=== PATIENT | male | born 1970 | race Caucasian/White ===

== ENCOUNTER 2020-10-08 06:01 | Outpatient (REF) | payer BC, OTHER, SELFPAY ==
[2020-10-08 11:52] LABS: Alanine Aminotransferase 45 U/L (0-40); Albumin Level 4.6 g/dL (3.5-5.0); Alkaline Phosphatase 115 U/L (39-117); Anion Gap 13 (12-20); Aspartate Amino Transferase 26 U/L (5-37); Bilirubin Total 0.5 mg/dL (0.0-1.0); Blood Urea Nitrogen 21 mg/dL (9-16); Carbon Dioxide 28 mmol/L (22-29); Chloride 103 mmol/L (96-108); Cholesterol 235 mg/dL; Estimated Glomerular Filt Rate > 60; Glucose Fasting 92 mg/dL (60-99); HDL Cholesterol 40 mg/dL; LDL Cholesterol Calculated 122 mg/dl; Potassium 4.2 mmol/l (3.3-5.1); Sodium 140 mmol/L (135-145); Total Protein 7.5 g/dL (6.5-8.0); Triglycerides 366 mg/dL
[2020-10-08 12:00] LABS: TSH reflex Free T4 3.72 mIU/mL (0.32-4.0)
== END 2020-10-08 06:02 | disposition home or self-care (01) ==
LOC: HO.HMGCLDS 06:01
PROVIDERS: PCP Nurse Practitioner Family; Visit Provider Nurse Practitioner Family
DX: Z00.00 Encounter for general adult medical examination without abnormal findings (principal)
CPT/HCPCS: 36415; 80053; 80061; 84443

== ENCOUNTER 2020-10-23 07:44 | Outpatient (REF) | payer BC, OTHER, SELFPAY ==
--- NOTE | 2020-10-23 07:46 | US_ITS ---
EXAMINATION: US ABDOMEN COMPLETE CLINICAL INFORMATION: Abnormal lab tests. COMPARISON: None TECHNIQUE: Real-time imaging of the abdominal viscera. FINDINGS: PANCREAS: Normal. ABDOMINAL AORTA: The proximal, mid, and distal segments are normal in caliber. INFERIOR VENA CAVA: Visualized portions are normal. LIVER: Liver echotexture is increased probably representing fatty infiltration. The liver is normal in size and contour. No focal hepatic lesion. There is no intrahepatic biliary duct dilatation seen. GALLBLADDER: Normal. The gallbladder is physiologically distended without evidence of stones, sludge, polyps, wall thickening or pericholecystic fluid. COMMON BILE DUCT: Normal in caliber measuring 0.3 cm in diameter. RIGHT KIDNEY: Normal. No hydronephrosis. No renal calculi or focal parenchymal lesions. The kidney measures 12.3 cm in maximum dimension. LEFT KIDNEY: Normal. No hydronephrosis. No renal calculi or focal parenchymal lesions. The kidney measures 12.5 cm in maximum dimension. SPLEEN: Normal. The spleen measures 12.7 cm in maximum dimension. FREE FLUID: None. US/US abdomen complete IMPRESSION: Echogenic liver probably representing fatty infiltration. Otherwise unremarkable exam.
== END 2020-10-23 07:45 | disposition home or self-care (01) ==
LOC: HO.US 07:44
PROVIDERS: Visit Provider Nurse Practitioner Family
DX: R74.8 Abnormal levels of other serum enzymes (principal)
CPT/HCPCS: 76700

== ENCOUNTER 2020-12-24 08:42 | Outpatient (REF) | payer BC, OTHER, SELFPAY ==
[2020-12-24 11:47] LABS: Cholesterol 151 mg/dL; HDL Cholesterol 31 mg/dL; LDL Cholesterol Calculated 72 mg/dl; Triglycerides 243 mg/dL
== END 2020-12-24 08:43 | disposition home or self-care (01) ==
LOC: HO.HMGCLDS 08:42
PROVIDERS: PCP Nurse Practitioner Family; Visit Provider Nurse Practitioner Family
DX: E78.5 Hyperlipidemia, unspecified (principal)
CPT/HCPCS: 36415; 80061

== ENCOUNTER 2023-05-12 10:01 | Outpatient (AMB) | payer BC, OTHER, SELFPAY ==
--- NOTE | 2023-05-12 11:01 | AM.OFFWIN_ITS ---
Intake Vital Signs 05/12/23 11:03 Weight 221 lb BP 112/78 Blood Pressure Location Rt brachial Position Sitting Pulse 94 Pulse Source Pulse Oximeter Temp 98.2 F Temp Source Temporal Artery Scan Pulse Oximetry (%) 95 Oxygen Delivery Method Room Air Intake Visit Reasons: EP, Bump in scrotum Intake Note: Patient here for bump in scrotum, he states its been there for some time. he also mentioned that he has noticed 2 other bumps. Patient Tobacco Use Status: Never used Tobacco Allergies No Known Allergies [No Known Allergies*] Allergy (Verified 05/12/23 11:24) Medication List - Last Reconciled 05/12/23 by Reagan Soliman MD atorvastatin 20 mg PO BEDTIME 90 days imiquimod 3.75% 2 packets topical BEDTIME 8 weeks Do you need a note to return to daycare/school/sports/work: No HPI EP, Bump in scrotum HPI Details 52-year-old male presents to the office for a sick visit. Over the past few months patient has noticed a few lesions on his shaft of penis and scrotum. There non irritating and not painful. Patient is and in a single relationship. [facility] Surgical History History of umbilical hernia repair Social History Alcohol intake: current Patient Tobacco Use Status: Never used Tobacco Physical Exam Vital Signs: Last Vital Signs Temp 98.2 F 05/12/23 11:03 Pulse 94 05/12/23 11:03 BP 112/78 05/12/23 11:03 Pulse Ox 95 05/12/23 11:03 Oxygen Delivery Method Room Air 05/12/23 11:03 Other: Flat papules over the penis and scrotum. No erythema or tenderness. Assessment & Plan Assessment & Plan (1) Genital warts: Code(s): A63.0 - Anogenital (venereal) warts Plan: Patient was advised to use the cream once a day. To apply it at bedtime and to wash it off in the morning. He needs to use the cream every day for 8 weeks. Medications: New imiquimod 3.75% 2 packets topical BEDTIME 8 weeks 56 packets 0RF Coding Level of Care Code Est Pt Level 3 (75280) Diagnoses Genital warts A63.0
[2023-05-12 11:03] VITALS: BP 112/78; PULSE 94; TEMP 36.8; O2SAT 95
== END 2023-05-12 11:38 | disposition home or self-care (01) ==
PROVIDERS: PCP Nurse Practitioner Family; Visit Provider Internal Medicine
DX: A63.0 Anogenital (venereal) warts (principal)
CPT/HCPCS: 99213

== ENCOUNTER 2023-06-13 10:21 | Outpatient (AMB) | payer BC, OTHER, SELFPAY ==
--- NOTE | 2023-06-13 10:29 | AM.OFFWIN_ITS ---
Intake Vital Signs 06/13/23 10:32 Weight 102.058 kg BP 120/80 Blood Pressure Location Rt brachial Position Sitting Pulse 96 Pulse Source Pulse Oximeter Temp 98.6 F Temp Source Oral Pulse Oximetry (%) 95 Oxygen Delivery Method Room Air Intake Visit Reasons: EST/spots on groin area Intake Note: PT was here one month ago due to recurrence of STD. Now he's noticed spots on scrotum and penis. Patient Tobacco Use Status: Never used Tobacco Allergies No Known Allergies [No Known Allergies*] Allergy (Verified 06/13/23 10:33) HPI HPI Comments History of Present Illness Details 1040 52-year-old male presents with lesions t hat are painless on his penis as well as worsening genital warts despite using imiquimod, patient has been using it at bedtime for 8 weeks, with little to no improvement. He is seeking a urology consult. 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 He also noted red ulcers/lesions on the shaft of his penis this has been present for the past few weeks. Patient has not been tested for gonorrhea, chlamydia, syphilis, HIV or hepatitis-C. He is in a relationship with his , his only partner. Denies discharge, difficulties with urination, fevers, chills. Physical exam small condyloma noted to the penis and scrotum, and there are pa inless ulcers to the shaft of the penis. Concerns for possible sexually transmitted infections such as syphilis, herpes, HPV. Unlikely chlamydia based presentation although still some low suspicion. Will test for syphilis, gonorrhea chlamydia, will have his PCP test for HIV or hepatitis-C. I feel as though this patient would benefit from a urological consultation/follow-up. Plan at this time will obtain a urine, basic labs, syphilis test. Advised him to continue using imiquimod. Educated patient on diagnosis and treatment plan, answered all question, patient verbalizes understanding. At this time patient will be discharged home, advised to return with new or worsening symptoms. Educated on worrisome signs and symptoms and when to return. At this time I feel comfortable discharge home. [facility] Surgical History History of umbilical hernia repair Social History Alcohol intake: current Patient Tobacco Use Status: Never used Tobacco Review of Systems Const Details: Constitutional : No Weight loss, No Fever, No Chills, No Fatigue, No Malaise ENT/Mouth : No sore throat, No Rhinorrhea Eyes: No Eye Pain, No Swelling, No Redness Cardiovascular : No Chest Pain, No SOB, No Dyspnea on Exertion, No Orthopnea, No Edema, No Palpitations Respiratory : No Cough, No Sputum, No Wheezing Gastrointestinal : No Nausea, No Vomiting, No Diarrhea, No Constipation, No abdominal Pain, No Hematochezia, No Melena Genitourinary : No Dysuria, No Urinary Frequency, No Hematuria, + lesions to penis Musculoskeletal : No joint pain, No Myalgias, No Joint Swelling Skin : No Skin Lesions, No rash Neuro : No Weakness, No Numbness, No Dizziness, No Headache Psych : No Anxiety/Panic, No Depression All other systems reviewed and are negative All systems reviewed & are unremarkable except as noted in HPI and below Physical Exam Vital Signs: Last Vital Signs Pulse 96 06/13/23 10:32 Pulse Ox 95 06/13/23 10:32 Oxygen Delivery Method Room Air 06/13/23 10:32 vss Appearance: Alert.? Oriented X3.? No acute distress.? Head: Normocephalic, atraumatic, no step-offs or deformities Eyes: Pupils equal, round and reactive to light.? CVS: Normal heart rate and rhythm.? Pulses normal.? Respiratory: No respiratory distress.? Breath sounds normal.? Abdomen: Soft and nontender.? Skin: Skin warm and dry.? Normal skin color.? Normal skin turgor.? Extremities: No lower extremity edema.? No calf ttp. 5/5 strength to bilateral upper and lower extremities Neuro: Oriented X 3.? No motor deficit.? No sensory deficit. 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 Assessment & Plan Assessment & Plan (1) Genital warts: Code(s): A63.0 - Anogenital (venereal) warts (2) Lesion of penis: Code(s): N48.9 - Disorder of penis, unspecified Plan Take your medications as prescribed. If you were prescribed antibiotics today, it is important that you take your medication to their entirety, do not skip any doses, do not finish them early. Follow-up with your primary care provider this week. Return to the emergency department with new or worsening symptoms. Such as fevers, chills, chest pain, shortness of breath, nausea, vomiting, dizziness, headache, vision changes, lethargy In case of emergency call 911 Orders: Orders Complete Blood Count Auto Diff Today A63.0 - Anogenital (venereal) warts Comprehensive Met. Panel Today A63.0 - Anogenital (venereal) warts Syphilis Screen Today A63.0 - Anogenital (venereal) warts CT NG by PCR Today A63.0 - Anogenital (venereal) warts UA CC w/rflx Micro + Cult Today A63.0 - Anogenital (venereal) warts Coding Level of Care Code Est Pt Level 3 (15554) Diagnoses Genital warts A63.0 Lesion of penis N48.9
[2023-06-13 10:32] VITALS: BP 120/80; PULSE 96; TEMP 37; O2SAT 95
== END 2023-06-13 11:00 | disposition home or self-care (01) ==
PROVIDERS: PCP Nurse Practitioner Family; Visit Provider Physician Assistant
DX: A63.0 Anogenital (venereal) warts (principal); N48.9 Disorder of penis, unspecified
CPT/HCPCS: 99213

== ENCOUNTER 2023-06-13 11:18 | Outpatient (REF) | payer BC, OTHER, SELFPAY ==
[2023-06-13 13:24] LABS: MANUAL DIFF FLAG NO
[2023-06-13 13:34] LABS: Basophils Percent Auto 0.3 % (0-2); Eosinophils Absolute Auto 0.1 X10*3/uL (0.0-0.4); Eosinophils Percent Auto 1.9 % (0-4); Hematocrit 47.7 % (42.0-52.0); Hemoglobin 16.8 g/dl (14.0-18.0); Imm Gran Abs Auto 0.02 X10*3/uL (0.00-0.03); Imm Gran Pct Auto 0.3 % (0.0-0.4); Lymphocytes Absolute Auto 0.8 X10*3/uL (1.2-4.9); Lymphocytes Percent Auto 13.9 % (20-40); Mean Corpuscular HGB Conc 35.2 g/dl (31.0-36.0); Mean Corpuscular Hemoglobin 31.4 pg (27.0-33.0); Mean Corpuscular Volume 89.2 fL (80.0-98.0); Mean Platelet Volume 9.7 fL (9.4-12.4); Monocytes Absolute Auto 0.4 X10*3/uL (0.1-1.2); Monocytes Percent Auto 6.3 % (2-11); Neutrophils Absolute Auto 4.4 x10*3/uL (2.0-8.3); Neutrophils Percent Auto 77.3 % (45-73); Platelet Count 283 X10*3/uL (160-400); Red Blood Count 5.35 X10*6/uL (4.60-5.80); Red Cell Distribution Width 11.7 % (11.0-16.0); White Blood Count 5.7 X10*3/uL (4.8-10.8)
[2023-06-13 13:42] LABS: Appearance Urine Clear; Color Urine Yellow; Glucose Urine UA Negative (Negative); Leukocyte Esterase Urine Negative (Negative); Nitrite Urine Negative (Negative); PH 5.5 (5.0-9.0); Specific Gravity - Urine 1.025 (1.005-1.025); Urine Blood Negative (Negative); Urine Ketones Negative (Negative); Urine Protein Negative (Neg-Trace)
[2023-06-13 13:43] LABS: Alanine Aminotransferase 44 U/L (0-40); Albumin Level 4.3 g/dL (3.5-5.0); Alkaline Phosphatase 106 U/L (39-117); Anion Gap 11 (12-20); Aspartate Amino Transferase 27 U/L (5-37); Bilirubin Total 0.7 mg/dL (0.0-1.0); Blood Urea Nitrogen 13 mg/dL (9-16); Calcium 9.3 mg/dL (8.4-10.2); Carbon Dioxide 27 mmol/L (22-29); Chloride 106 mmol/L (96-108); Estimated Glomerular Filt Rate > 60; Glucose Random 101 mg/dL (60-115); Potassium 3.8 mmol/L (3.3-5.1); Sodium 140 mmol/L (135-145); Total Protein 7.4 g/dL (6.5-8.0)
[2023-06-13 14:04] LABS: Syphilis Screen Nonreactive (Nonreactive)
[2023-06-13 15:07] LABS: CT PCR NOT DETECTED (Not Detect.); NG PCR NOT DETECTED (Not Detect.)
== END 2023-06-13 11:19 | disposition home or self-care (01) ==
LOC: HO.HMGCLDS 11:18
PROVIDERS: PCP Nurse Practitioner Family; Visit Provider Physician Assistant
DX: A63.0 Anogenital (venereal) warts (principal)
CPT/HCPCS: 0353U; 36415; 80053; 81003; 85025; 86780

== ENCOUNTER 2023-06-27 09:27 | Outpatient (AMB) | payer BC, OTHER, SELFPAY ==
[2023-06-27 11:20] VITALS: BP 122/78; PULSE 88; TEMP 36.3; O2SAT 98; BMI 32.6
--- NOTE | 2023-06-27 11:20 | MHC.OFFWIV ---
Intake Vital Signs 06/27/23 11:20 Height 5 ft 9 in Weight 221 lb BMI 32.6 BP 122/78 Blood Pressure Location Rt brachial Position Sitting Pulse 88 Pulse Source Pulse Oximeter Temp 97.3 F Temp Source Temporal Artery Scan Pulse Oximetry (%) 98 Intake Visit Reasons: EST/groin issues Intake Note: pt is here for c/o genital warts, patient states hes been here awhile ago but new ones keep popping up and he has concerns Patient Tobacco Use Status: Never used Tobacco Allergies No Known Allergies [No Known Allergies*] Allergy (Verified 06/13/23 10:33) Do you need a note to return to daycare/school/sports/work: Yes HPI EST/groin issues HPI Details Patient is a 52-year-old male comes the walk-in clinic complaining of a new penile lesion, that does not hurt at baseline but is sore with touch, and skin is peeling away around it. He does have a longstanding history of HPV penile warts and recently had new wart like lesion and states that because it had looked different than his prior warts he had a STD workup that was negative, however he was not tested for HSV at the time. He denies fever or chills, headaches, myalgias or malaise, abdominal or back pain, nausea vomiting or diarrhea, or other significant associated viral/infectious symptoms. He denies high risk sexual intercourse since his last STD workup. [facility] Surgical History History of umbilical hernia repair Social History Alcohol intake: current Patient Tobacco Use Status: Never used Tobacco Review of Systems Const All systems reviewed & are unremarkable except as noted in HPI and below Physical Exam Vital Signs: Last Vital Signs Temp 97.3 F 06/27/23 11:20 Pulse 88 06/27/23 11:20 BP 122/78 06/27/23 11:20 Pulse Ox 98 06/27/23 11:20 BMI result Body Mass Index 32.6 Const General: cooperative, healthy appearing, comfortable, no acute distress, alert, awake, Physically active and well groomed; No anxious, diaphoretic, ill appearing, intoxicated appearing, poor hygiene or tired appearing Nutritional Appearance: average body habitus Limitations: no limitations Resp Effort & Inspection: normal respiratory effort Male General Exam: Yes Genital lesions present (approx 1.5cm ulcerative lesion to the anteriorly at the distal aspect shaft) Penis: circumcised, condyloma, no ecchymosis, not edematous, not erythematous, no masses and Genital lesions present (approx 1.5cm ulcerative lesion to the anteriorly at the distal aspect shaft) Meatus: meatus normal, no meatla discharge, no epispadias and no hypospadias Testes: no testicular swelling and no testicular tenderness Psych Appearance: grossly normal Mental Status: mental status grossly normal Speech and movement: Normal speech and movement present Affect: normal affect Attitude: cooperative Thought process: Normal thought process present Insight: Good insight present (Psych) Judgement: Good judgement present (Psych) Assessment & Plan Assessment & Plan (1) Genital lesion, male: Code(s): N50.89 - Other specified disorders of the male genital organs Plan: Patient is a 52 year old with a 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 Apparently he had a recent flare up that did improve for a while with topical treatment. He also developed a new large wart on the penis that he was told was a regular wart . A new lesion has now appeared on the penis that looks ulcerative to me, and so I ordered HSV bloodwork. I also had him swab the lesion for bacteria/yeast testing. He had had recent CT/GC and syphylis workup when the penile wart had appeared, that was negative, but no HIV testing, so that was also ordered today. I was unable to send out a swab/skin sample of the new lesion however as the lab confirmed that we did not have a proper collection container for viral lesions. The patient was made aware of this. He did not present with any associated symptoms, and he stated that he was not high risk with new sexual intercourse, so it is unlikely that this is a primary outbreak. He declined repeat GC/CT/syphilis testing. However as he reports that he was never diagnosed with HSV before, I did write him for a course of valtrex for a primary herpetic eruption. I also refilled the imiquimod cream for the HPV lesions. He states that he is traveling for a few weeks and would not easily be able to follow up, but I did tell him that he could go to the ED or back to urology for further workup if it did not clear up, or for further evaluation and management. He understood this. He does have a follow up with urology in a month, and can discuss retest with HSV at that time depending on these results. Orders: Orders Bacterial Vaginosis Panel 06/27/23 N50.89 - Other specified disorders of the male genital organs Viral Culture 06/27/23 N50.89 - Other specified disorders of the male genital organs Herpes Simplex Virus Ab IgG 06/27/23 A63.0 - Anogenital (venereal) warts HSV I and II,IHC 06/27/23 N50.89 - Other specified disorders of the male genital organs HIV Ab/Ag 06/27/23 Z11.3 - Encounter for screening for infections with a predominantly sexual mode of transmission Medications: New valacyclovir (Valtrex) 1,000 mg PO BID 1 week 14 tabs 0RF Refilled imiquimod 3.75% 2 packets topical BEDTIME 8 weeks 56 packets 0RF Coding Level of Care Code Est Pt Level 4 (28724) Diagnoses Genital lesion, male N50.89
== END 2023-06-27 12:50 | disposition home or self-care (01) ==
PROVIDERS: PCP Nurse Practitioner Family; Visit Provider Physician Assistant Medical
DX: N50.89 Other specified disorders of the male genital organs (principal)
CPT/HCPCS: 99214

== ENCOUNTER 2023-06-27 12:21 | Outpatient (REF) | payer BC, OTHER, SELFPAY ==
[2023-06-29 03:55] LABS: HIV AB/AG Nonreactive (Nonreactive); HIV Num 1 0.06 S/CO (0.00-0.99)
[2023-06-29 21:28] LABS: Herpes Simplex Type 2 IgG <0.90 index
== END 2023-06-27 12:22 | disposition home or self-care (01) ==
LOC: HO.HMGCLDS 12:21
PROVIDERS: PCP Nurse Practitioner Family; Visit Provider Physician Assistant Medical
DX: A63.0 Anogenital (venereal) warts (principal); Z11.3 Encounter for screening for infections with a predominantly sexual mode of transmission
CPT/HCPCS: 36415; 86695; 86696; 87389

== ENCOUNTER 2023-06-27 14:06 | Outpatient (REF) | payer BC, OTHER, SELFPAY | END 2023-06-27 14:07 | disposition home or self-care (01) | LOC: HO.LAB 14:06 | PROVIDERS: Visit Provider Physician Assistant Medical | DX: Z13.89 Encounter for screening for other disorder (principal) | CPT/HCPCS: 87480; 87510; 87660 ==

== ENCOUNTER 2023-07-31 14:43 | Outpatient (AMB) | payer BC, OTHER, SELFPAY ==
--- NOTE | 2023-07-31 15:00 | A.OFFVIS_ITS ---
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 The patient present with his . States in a monogamous relationship. 07/31/2023? He presents today for an evaluation of genital warts. The patient stated that he noted a few lesions that he thought might be genital warts. He was evaluated at an urgent care facility and treated with imiquimod gel. He stated he used it as prescribed and developed ulcerated lesions on his penis. The Patient had STD testing which came back positive for Herpes I positive antibody, Herpes II negative, HIV non reactive and Chlamydia and gonorrhoea not detected in the urine. He returned to the clinic and was informed that he had developed a genital herpes lesion and was started on Valtrex 1000 mg twice a day. PSA results ? reviewed?10/01/2018?0.77 ng/mL Examination: several areas on the shaft and lower supra pubic area looked like reactive dermatitis and ulcerations around the glans. I discussed with the patient that the changes on the genitalia may be secondary to the use of the imiquimod gel He was advised to stop using the gel and also stop valacyclovir as his blood work noted positive antibody for herpes type 1 rather than type 2. . Evaluation today?UA? Leukocytes: negative; blood: negative. Plan: Prescribed a steroid cream and 5% lidocaine cream for the pain. Advised the patient not to use soap and advised him to just rinse the genital area. Follow-up in 3 months. [facility] Surgical History History of umbilical hernia repair Family History Father No problems noted. Mother No problems noted. Social History Alcohol intake: current Patient Tobacco Use Status: Never used Tobacco Review of Systems Const All systems reviewed & are unremarkable except as noted in HPI and below Reports no additional complaints Eyes Reports no additional complaints ENT Reports no additional complaints Card Denies dyspnea Resp Denies cough and Denies dyspnea GI Reports no additional complaints Musc Reports no additional complaints Skin/Breast Denies rash and Denies unusual bruising Neuro Reports no additional complaints Psych Reports no additional complaints Endo Reports no additional complaints Wolfgang/Lymph Reports no additional complaints Aller/Immun Reports no additional complaints Physical Exam Const General: healthy appearing, no acute distress and well developed Orientation/consciousness: patient oriented x3 HEENT Head: Yes normocephalic and Yes atraumatic Eyes Conjunctivae: conjunctivae normal Neck Neck: Yes normal visual inspection Chest Chest palpation & inspection: normal inspection of the chest Resp Effort & Inspection: normal respiratory effort Cardio Rate: regular rate GI Inspection: Yes normal to inspection Palpation (GI): Soft to palpation Other: Genitalia - several areas on the penile shaft and lower supra pubic area dermatitis-changes and ulcerations around the glans penis. Scrotum: scrotum normal Skin General skin exam: no rashes or lesions noted Neuro General: patient oriented x3 Extrem General: No pedal edema Psych Appearance: grossly normal Affect: normal affect Results AMB Urinalysis, Automated UA Leukoctes 0 Usman/uL Last Edit by RUDDY Ham on 07/31/23 15:22 UA Nitrite Negative Last Edit by RUDDY Ham on 07/31/23 15:22 UA Urobilinogen 0.2 mg/dL Last Edit by RUDDY Ham on 07/31/23 15:2 2 UA Protein 0 mg/dL Last Edit by RUDDY Ham on 07/31/23 15:22 UA pH 6.0 Last Edit by RUDDY Ham on 07/31/23 15:22 UA Blood 0 Tim/uL Last Edit by RUDDY Ham on 07/31/23 15:22 UA Specific [place] 1.030 Last Edit by Lisa Michelet, RMA on 07/31/23 15: 22 UA Ketone Negative Last Edit by NATALIE HamA on 07/31/23 15:22 UA Bilirubin 0 mg/dL Last Edit by Lisa Tafoya A on 07/31/23 15:22 UA Glucose 0 mg/dL Last Edit by NATALIE HamA on 07/31/23 15:22 Results Reviewed Results Reviewed: Laboratory Last Values Urine pH (Auto) 6.0 07/31/23 15:18 Specific [place] (Auto) 1.030 07/31/23 15:18 Urine Protein (Auto) 0 mg/dL 07/31/23 15:18 Glucose (UA)(Auto) 0 mg/dL 07/31/23 15:18 Urine Ketones (Auto) Negative 07/31/23 15:18 Urine Blood (Auto) 0 Tim/uL 07/31/23 15:18 Urine Nitrite (Auto) Negative 07/31/23 15:18 Urine Bilirubin (Auto) 0 mg/dL 07/31/23 15:18 Urine Urobilinogen (Auto) 0.2 mg/dL 07/31/23 15:18 Leukocyte Esterase (Auto) 0 Usman/uL 07/31/23 15:18 Assessment & Plan Assessment & Plan (1) Dermatitis of genitalia in male: Code(s): L30.9 - Dermatitis, unspecified (2) Physical exam: Code(s): Z00.00 - Encounter for general adult medical examination without abnormal findings Plan Prescribed a steroid cream and 5% lidocaine cream for the pain. Advised the patient not to use soap and advised him to just rinse the genital area. Follow-up in 3 months. Orders: Orders AMB Urinalysis Automated 07/31/23 Z13.9 - Encounter for screening, unspecified Medications: New betamethasone dipropionate 0.05% 1 appl topical BID PRN 45 grams 1RF allergic reaction lidocaine 5% 1 appl topical BID PRN 30 grams 1RF pain Patient Instructions: The patient had an opportunity to ask questions regarding treatment plan. All questions were answered. Imaging, Laboratory studies and physical exam results were discussed and reviewed in detail. No major barriers to understanding were identified. The patient expressed understanding and agreement with the above treatment plan. The patient is aware they should contact our office by phone for worsening of their current condition or the appearance of new symptoms. Compliance is encouraged with any medications and followup testing that is ordered. It is a privilege to be allowed the opportunity to participate in the urologic care of your patient. If you have any questions or concerns regarding treatment for the above conditions please do not hesitate to contact me. The office telephone contact is [phone]. This note is constructed in part using voice recognition software. While every effort has been made to ensure accuracy bend sorter errors may have been included. Yours sincerely, Faizan Valerio MD Coding Level of Care Code New Pt Level 3 (74033) Diagnoses Dermatitis of genitalia in male L30.9 Physical exam Z00.00
== END 2023-07-31 15:59 | disposition home or self-care (01) ==
PROVIDERS: PCP Nurse Practitioner Family; Visit Provider Urology
DX: L30.9 Dermatitis, unspecified (principal); Z00.00 Encounter for general adult medical examination without abnormal findings
CPT/HCPCS: 99203

== ENCOUNTER → 2023-07-31 14:43 | Outpatient (BNVA) | payer BC, OTHER, SELFPAY | PROVIDERS: PCP Nurse Practitioner Family; Visit Provider Urology | DX: L30.9 Dermatitis, unspecified (principal) | CPT/HCPCS: 81003; 99202 ==

== ENCOUNTER 2023-10-08 14:53 | Outpatient (AMB) | payer BC, OTHER, SELFPAY ==
--- NOTE | 2023-10-08 14:56 | MHC.PC.OV ---
Vital Signs 10/08/23 14:59 Height 5 ft 9 in Weight 229 lb BMI 33.8 BP 120/80 Blood Pressure Location Rt brachial Position Sitting Pulse 88 Pulse Source Pulse Oximeter Pulse Oximetry (%) 98 Oxygen Delivery Method Room Air Intake Visit Reasons: Annual PE Intake Note: Patient here for physical exam. Pt would like to talk chest pain that was more towards the right side of the chest and states its happened twice and one time it lasted about 20mins and had to sit down to let it subside. no colonoscopy but had cologuard done last month. Allergies No Known Allergies [No Known Allergies*] Allergy (Verified 10/08/23 15:01) Medication List - Last Reconciled 10/08/23 by LUCI Luna atorvastatin 20 mg PO BEDTIME 90 days Tobacco use date assessed: 10/08/23 Dental Screening Dental Screen Date: 10/08/23 Did you have a dental visit in the last 12 months?: No Did you have a dental problem in the last 6 months where you did not have access to dental care?: No Was dental information given to patient?: Patient has dentist HPI Annual PE HPI Details Pt is here for a PE. Will order labs. Cologuard is up to date. Due for PSA, will order. Denies dribbling with urination, weak stream, and frequent nocturia. Pt reports intermittent right-sided chest discomfort. He reports that the discomfort last for approximately 20 minutes and goes away with rest. denied any radicular symptoms. He did have tenderness with palpation of his chest at the time as well. Will do an EKG in office, though does not sound cardiac related. [facility] History History of umbilical hernia repair Family History Father No problems noted. Mother No problems noted. Social History Housing: House Alcohol intake: current Patient Tobacco Use Status: Never used Tobacco e-Cigarette/Vaping Use: Never Used service: Yes Current occupational status: employed Current occupational exposures/hazards: Yes Cognitive needs: No Hearing needs: No Vision needs: No Questionnaire PHQ-9 Over the last 2 weeks, how often have you been bothered by any of the following problems? 1. Little interest or pleasure in doing things: not at all 2. Feeling down, depressed, or hopeless: not at all 3. Trouble falling or staying asleep, or sleeping too much: not at all 4. Feeling tired or having little energy: not at all 5. Poor appetite or overeating: not at all 6. Feeling bad about yourself - or that you are a failure or have let yourself or your family down: not at all 7. Trouble concentrating on things, such as reading the newspaper or watching television: not at all 8. Moving or speaking so slowly that other people could have noticed. Or the opposite - being so fidgety or restless that you have been moving around a lot more than usual: not at all 9. Thoughts that you would be better off or of hurting yourself in some way: not at all Total score: 0 Depression Screening Interpretation: Negative Depression Screening Done: Yes 06861 - PHQ-9 Billing: Yes Source: Developed by Drs. Esequiel Munoz, Francy Gurrola, Glen Becker and colleagues, with an educational rosalinda from [employer]. Thrive Questionnaire Date Thrive assessed: 10/08/23 I am a: Patient What is your living situation today?: I have a steady place to live Within the past 12 months, did the food you bought not last and you didn't have the money to get more?: Never true Within the past 12 months, did you worry whether your food would run out before you got money to buy more?: Never true Do you have trouble paying for medicines?: No Do you have trouble getting transportation to medical appointments?: No Do you have trouble paying your heating and electricity bill?: No Do you have trouble taking care of your child, family member or friend?: No Do you have trouble with day-to-day activities such as bathing, preparing meals, shopping, managing finances, etc.?: No Are you currently unemployed and looking for a job?: No Are you interested in more education?: No Currently or been in a relationship where the following occur: no concerns reported AUDIT C Alcohol Use Questionnaire (AUDIT-C) 1. How often do you have a drink containing alcohol?: Monthly or less 2. How many drinks containing alcohol do you have on a typical day when you are drinking?: 1 or 2 3. How often do you have six or more drinks on one occasion?: Never Total Score: 1 Score Reviewed/Action Taken: No STUART-7 AMB Questionnaire STUART-7 Date STUART - 7 assessed: 10/08/23 Source: Developed by Drs. Esequiel Munoz, Francy Gurrola, Glen Becker and colleagues, with an educational rosalinda from [employer]. STUART-7 Assessment Billing STUART-7 Assessment Tool: pt declined-do not bill Review of Systems Const Denies chills and Denies fever(s) Eyes Denies blurry vision ENT Denies vertigo, Denies dizziness and Denies sore throat Card Reports chest pain, Denies diaphoresis, Denies dyspnea and Denies dyspnea on exertion Resp Denies cough, Denies dyspnea, Denies dyspnea on exertion and Denies wheezing GI Denies abdominal pain, Denies melena, Denies hematochezia, Denies constipation, Denies diarrhea and Denies loose stools Denies hematuria Musc Denies numbness and Denies tingling Skin/Breast Denies lesions Neuro Denies vertigo, Denies dizziness, Denies numbness and Denies tingling Psych Denies anxiety, Denies depression, Denies homicidal ideation, Denies suicidal ideation and Denies other (substance abuse) Aller/Immun Denies wheezing Physical exam (Primary Care) Vital Signs: Last Vital Signs Pulse 88 10/08/23 14:59 BP 120/80 10/08/23 14:59 Pulse Ox 98 10/08/23 14:59 Oxygen Delivery Method Room Air 10/08/23 14:59 BMI result Body Mass Index 33.8 Tobacco/Smoking Status: Tobacco use Status Tobacco use date assessed 10/08/23 10/08/23 15:05 Patient Tobacco Use Status Never used Tobacco 10/08/23 15:05 e-Cigarette/Vaping Use Never Used 10/08/23 15:05 Depression Screening Interpretation: Negative Currently or been in a relationship where the following occur: no concerns reported Const General: cooperative Nutritional Appearance: well nourished Orientation/consciousness: patient oriented x3 HENMT Head: Yes normal to inspection, Yes normocephalic and Yes atraumatic Ears: TM's normal bilaterally Eyes General: appearance normal, both eyes and all related structures Alignment and Position: alignment normal and position normal Neck Neck: Yes normal visual inspection and Yes no lymphadenopathy Thyroid: Thyroid normal Resp Effort & Inspection: normal respiratory effort Auscultation: clear to auscultation bilaterally Cardio Rate: regular rate Rhythm: regular rhythm Heart sounds: S1 normal heart sound present, S2 normal heart sound present and no murmurs GI Palpation (GI): Soft to palpation and nontender Auscultation: normal bowel sounds Male General Exam: Yes normal external exam Penis: normal penis Scrotum: scrotum normal, testes descended bilaterally and no inguinal hernias Testes: no testicular mass Skin Rashes: no rashes Neuro General: patient oriented x3, moves all extremities, no focal motor deficits and deep tendon reflexes 2+ bilaterally Romberg Test: Negative Psych Appearance: grossly normal Mental Status: mental status grossly normal Speech and movement: Normal speech and movement present Affect: normal affect Attitude: cooperative Thought process: Normal thought process present Thought content: Normal thought content present Insight: Good insight present (Psych) Judgement: Good judgement present (Psych) Office Procedures Flu Questionnaire Does the patient have a severe egg allergy?: No Does the patient have severe life threatening allergies?: No Does the patient have a fever or illness today?: No Has the patient ever had Guillain-[place] Syndrome?: No Has the patient ever had any past reaction to a flu shot?: No Immunizations flu vacc [id number] 6mos up(PF) 60 mcg(15 mcgx4)/0.5 mL IM syringe Performing Provider: LUCI Luna Performing Location: [facility] Administered by: NOHEMI Real on 10/08/23 15:47 Dose Route Admin Location Dispensed Lot Number Expiration Date NDC Client Delivery Manager 0.5 mL IM Right Deltoid 0.5 mL [id number] 04/03/24 [id number] [employer] VIS Given Date VIS Provided VIS Publication Date 10/08/23 Single Vaccine 21 Eligibility Eligibility Date Funding Source Not VFC Eligible 10/08/23 Private Assessment and Plan Assessment & Plan (1) Physical exam: Code(s): Z00.00 - Encounter for general adult medical examination without abnormal findings Plan: Labs ordered (2) Chest discomfort: Code(s): R07.89 - Other chest pain Plan: EKG done in office, pt knows to seek medical attention if symptoms worsen. Plan The patient agreed to the use of a biomedical engineering director for this encounter. Scribed for KATHY Gómez- by Jes Preston biomedical engineering director, on 10/08/2023 at 15:10 EST. Orders: Orders Complete Blood Count Auto Diff Today Z00.00 - Encounter for general adult medical examination without abnormal findings TSH reflex Free T4 Today Z00.00 - Encounter for general adult medical examination without abnormal findings AMB EKG-In Office Today R07.89 - Other chest pain Comprehensive [place]. Panel Fast Today Z00.00 - Encounter for general adult medical examination without abnormal findings UA CC w/rflx Micro + Cult Today Z00.00 - Encounter for general adult medical examination without abnormal findings Lipid Panel Today Z00.00 - Encounter for general adult medical examination without abnormal findings Influenza [id number] Immunization Today Z23 - Encounter for immunization Coding Level of Care Code Est Pt Prev Care 40-64y(77771) Diagnoses Physical exam Z00.00 Chest discomfort R07.89
[2023-10-08 14:59] VITALS: BP 120/80; PULSE 88; O2SAT 98; BMI 33.8
== END 2023-10-08 15:51 | disposition home or self-care (01) ==
PROVIDERS: PCP Nurse Practitioner Family; Visit Provider Nurse Practitioner Family
DX: Z00.00 Encounter for general adult medical examination without abnormal findings (principal); R07.89 Other chest pain; Z23 Encounter for immunization
CPT/HCPCS: 90471; 90686; 93000; 99396

== ENCOUNTER 2023-10-12 06:02 | Outpatient (REF) | payer BC, OTHER, SELFPAY | END 2023-10-12 06:03 | disposition home or self-care (01) | LOC: HO.HMGCLDS 06:02 | PROVIDERS: PCP Nurse Practitioner Family; Visit Provider Nurse Practitioner Family | DX: Z00.00 Encounter for general adult medical examination without abnormal findings (principal) | CPT/HCPCS: 36415; 80053; 80061; 81003; 84439; 84443; 85025 ==

== ENCOUNTER 2024-11-07 07:31 | Outpatient (AMB) | payer BC, OTHER, SELFPAY ==
[2024-11-07 07:38] VITALS: BP 118/78; PULSE 91; TEMP 36.8; O2SAT 95; BMI 32.6
--- NOTE | 2024-11-07 07:38 | MHC.PC.OV ---
Vital Signs 11/07/24 07:38 Height 5 ft 10 in Weight 227 lb BMI 32.6 BP 118/78 Blood Pressure Location Lt brachial Position Sitting Pulse 91 Pulse Source Pulse Oximeter Temp 98.2 F Temp Source Oral Pulse Oximetry (%) 95 Oxygen Delivery Method Room Air Intake Visit Reasons: Annual PE Intake Note: Pt is here today for his PE Allergies No Known Allergies [No Known Allergies*] Allergy (Verified 10/08/23 15:01) Medication List - Last Reconciled 11/07/24 by KATHY Luna-HERNANDO atorvastatin 20 mg PO BEDTIME 90 days Tobacco use date assessed: 11/07/24 Dental Screening Dental Screen Date: 11/07/24 Did you have a dental visit in the last 12 months?: No Did you have a dental problem in the last 6 months where you did not have access to dental care?: No Was dental information given to patient?: Patient has dentist HPI Annual PE HPI Details History of Present Illness The patient is a 53-year-old male presenting for a routine physical examination. There are no acute complaints reported by the patient during this visit. He denies experiencing any shortness of breath, chest pain, nausea, vomiting, diarrhea, presence of blood in stool, constipation, fever, chills, anxiety, depression, or any signs of homicidal ideation. He has a notable medical history of skin cancer and regularly sees a sports statistician for ongoing surveillance. The patient declined a digital rectal exam but opted for Prostate-Specific Antigen (PSA) testing instead. This visit is part of his ongoing preventative health care. Health Maintenance - Cologuard screening is up to date. - Follow-up with a sports statistician for a history of skin cancer. - PSA test to be performed due to refusal of digital rectal exam for prostate evaluation. Social History Review of Systems - General: Denies fever, chills, or any general malaise. - Gastrointestinal: Denies nausea, vomiting, diarrhea, presence of blood in stool, or constipation. - Psychological: Denies anxiety, depression, social withdrawal, or homicidal ideation. Physical Exam General: Cooperative, healthy appearing, comfortable, no acute distress and well developed Orientation: Patient oriented x3 Limitations: No limitations Head: Normal to inspection Ears: Hearing grossly normal bilaterally Nose: Normal external nose present Face and sinus: Normal facial exam Eyes: Appearance normal, both eyes and all related structures Neck: Normal visual inspection and Yes full ROM Respiratory: Normal respiratory effort and able to speak in complete sentences. Clear to auscultation bilaterally Cardiovascular: Regular rate and rhythm. Normal S1 and S2 GI: Normal to inspection. Soft to palpation and nontender Skin: No rashes or lesions noted. Patient sees a sports statistician due to history of skin cancer Neuro: Patient oriented x3 Extremities: Normal to inspection Results - PSA test: Pending Plan - Perform PSA testing as part of prostate health screening. - Continue dermatology consultations for skin cancer surveillance. - Maintain current preventative care practices including up-to-date screening tests and health checks. Patient was informed and verbally consented to the use of an ambient scribe for clinic note documentation during this visit. Discussion Notes I informed the patient about the importance of regular health screenings and preventative care. We discussed the benefits of ongoing dermatological surveillance due to his history of skin cancer. The patient was informed of the potential risks and benefits of PSA testing as part of prostate health monitoring. He was also reminded of the value of preventative measures for overall health maintenance. Patient Instructions - Continue regular sports statistician visits as planned. - Follow up on PSA test results when available. - Maintain annual health check-ups and screenings as recommended. [facility] Surgical History History of umbilical hernia repair Family History Father No problems noted. Mother No problems noted. Social History Housing: House Alcohol intake: current Patient Tobacco Use Status: Never used Tobacco e-Cigarette/Vaping Use: Never Used service: Yes Current occupational status: employed Current occupational exposures/hazards: Yes Cognitive needs: No Hearing needs: No Vision needs: No Questionnaire PHQ-9 Over the last 2 weeks, how often have you been bothered by any of the following problems? 1. Little interest or pleasure in doing things: not at all 2. Feeling down, depressed, or hopeless: not at all 3. Trouble falling or staying asleep, or sleeping too much: not at all 4. Feeling tired or having little energy: not at all 5. Poor appetite or overeating: not at all 6. Feeling bad about yourself - or that you are a failure or have let yourself or your family down: not at all 7. Trouble concentrating on things, such as reading the newspaper or watching television: not at all 8. Moving or speaking so slowly that other people could have noticed. Or the opposite - being so fidgety or restless that you have been moving around a lot more than usual: not at all 9. Thoughts that you would be better off or of hurting yourself in some way: not at all Total score: 0 Depression Screening Interpretation: Negative Depression Screening Done: Yes 70201 - PHQ-9 Billing: Yes Source: Developed by Drs. Esequiel Munoz, Francy Gurrola, Glen Becker and colleagues, with an educational rosalinda from [employer]. Thrive Questionnaire Date Thrive assessed: 11/07/24 I am a: Patient What is your living situation today?: I have a steady place to live Within the past 12 months, did the food you bought not last and you didn't have the money to get more?: Never true Within the past 12 months, did you worry whether your food would run out before you got money to buy more?: Never true Do you have trouble paying for medicines?: No Do you have trouble getting transportation to medical appointments?: No Do you have trouble paying your heating and electricity bill?: No Do you have trouble taking care of your child, family member or friend?: No Do you have trouble with day-to-day activities such as bathing, preparing meals, shopping, managing finances, etc.?: No Are you currently unemployed and looking for a job?: No Are you interested in more education?: No Please select the resources that you would like help with: None Currently or been in a relationship where the following occur: No concerns reported THRIVE Score: 0 AUDIT C Alcohol Use Questionnaire (AUDIT-C) 1. How often do you have a drink containing alcohol?: Monthly or less 2. How many drinks containing alcohol do you have on a typical day when you are drinking?: 1 or 2 3. How often do you have six or more drinks on one occasion?: Never Total Score: 1 STUART-7 AMB Questionnaire STUART-7 Date STUART - 7 assessed: 11/07/24 Feeling nervous, anxious, or on edge: 0 = Not at all Not being able to stop or control worryin = Not at all Worrying too much about different things: 0 = Not at all Trouble relaxin = Not at all Being so restless that it is hard to sit still: 0 = Not at all Becoming easily annoyed or irritable: 0 = Not at all Feeling afraid as if something awful might happen: 0 = Not at all Total STUART-7 score (0-4 normal; 5-9 mild; 10-14 moderate; 15-21 severe): 0 Source: Developed by Drs. Esequiel Munoz, Francy Gurrola, Glen Becker and colleagues, with an educational rosalinda from [employer]. STUART-7 Assessment Billing STUART-7 Assessment Tool: STUART-7 Assessment 62222 Physical exam (Primary Care) Vital Signs: Last Vital Signs Temp 98.2 F 11/07/24 07:38 Pulse 91 11/07/24 07:38 BP 118/78 11/07/24 07:38 Pulse Ox 95 11/07/24 07:38 Oxygen Delivery Method Room Air 11/07/24 07:38 BMI result Body Mass Index 32.6 Tobacco/Smoking Status: Tobacco use Status Tobacco use date assessed 11/07/24 11/07/24 07:41 Patient Tobacco Use Status Never used Tobacco 11/07/24 07:41 e-Cigarette/Vaping Use Never Used 11/07/24 07:41 PHQ-9: PHQ-9 Score PHQ-9: Total score 0 11/07/24 07:41 Depression Screening Interpretation: Negative Thrive Assessment: Date of Thrive Assessment Date Thrive assessed 11/07/24 11/07/24 07:41 Currently or been in a relationship where the following occur: No concerns reported Coding Level of Care Code New Pt Prev Care 40-64y(74151) Diagnoses Physical exam Z00.00 Screening for prostate cancer Z12.5 Additional Codes PHQ-9 - 32393 - PHQ-9 Billing: Yes ([id number]) STUART-7 Assessment Billing - STUART-7 Assessment Tool: STUART-7 Assessment 45155 ([id number]) Assessment & Plan Assessment & Plan (1) Physical exam: Code(s): Z00.00 - Encounter for general adult medical examination without abnormal findings Category: Medical (2) Screening for prostate cancer: Code(s): Z12.5 - Encounter for screening for malignant neoplasm of prostate Category: Medical Plan . Orders: Orders Complete Blood Count Auto Diff Today Z00.00 - Encounter for general adult medical examination without abnormal findings UA CC w/rflx Micro + Cult Today Z00.00 - Encounter for general adult medical examination without abnormal findings Lipid Panel Today Z00.00 - Encounter for general adult medical examination without abnormal findings Comprehensive [place]. Panel Fast Today Z00.00 - Encounter for general adult medical examination without abnormal findings TSH reflex Free T4 Today Z00.00 - Encounter for general adult medical examination without abnormal findings Prostate Specific Antigen Scr Today Z12.5 - Encounter for screening for malignant neoplasm of prostate
== END 2024-11-07 08:49 | disposition home or self-care (01) ==
PROVIDERS: PCP Nurse Practitioner Family; Visit Provider Nurse Practitioner Family
DX: Z00.00 Encounter for general adult medical examination without abnormal findings (principal); Z12.5 Encounter for screening for malignant neoplasm of prostate

== ENCOUNTER → 2024-11-07 07:31 | Outpatient (BNVA) | payer BC, OTHER, SELFPAY | PROVIDERS: PCP Nurse Practitioner Family; Visit Provider Nurse Practitioner Family | DX: Z00.00 Encounter for general adult medical examination without abnormal findings (principal) | CPT/HCPCS: 96127 ==

== ENCOUNTER 2024-11-18 08:41 | Outpatient (REF) | payer BC, OTHER, SELFPAY ==
[2024-11-18 09:46] LABS: MANUAL DIFF FLAG NO
[2024-11-18 10:02] LABS: Basophils Percent Auto 0.4 % (0-2); Eosinophils Absolute Auto 0.1 X10*3/uL (0.0-0.4); Eosinophils Percent Auto 2.4 % (0-4); Hematocrit 48.4 % (42.0-52.0); Hemoglobin 16.9 g/dl (14.0-18.0); Imm Gran Abs Auto 0.03 X10*3/uL (0.00-0.03); Imm Gran Pct Auto 0.6 % (0.0-0.4); Lymphocytes Absolute Auto 0.7 X10*3/uL (1.2-4.9); Lymphocytes Percent Auto 13.5 % (20-40); Mean Corpuscular HGB Conc 34.9 g/dl (31.0-36.0); Mean Corpuscular Hemoglobin 31.3 pg (27.0-33.0); Mean Corpuscular Volume 89.6 fL (80.0-98.0); Mean Platelet Volume 9.4 fL (9.4-12.4); Monocytes Absolute Auto 0.4 X10*3/uL (0.1-1.2); Monocytes Percent Auto 8.5 % (2-11); Neutrophils Absolute Auto 3.7 x10*3/uL (2.0-8.3); Neutrophils Percent Auto 74.6 % (45-73); Platelet Count 267 X10*3/uL (160-400); Red Cell Distribution Width 12.3 % (11.0-16.0)
[2024-11-18 10:08] LABS: Appearance Urine Clear; Color Urine Yellow; Glucose Urine UA Negative (Negative); Leukocyte Esterase Urine Negative (Negative); Nitrite Urine Negative (Negative); PH 5.5 (5.0-9.0); Specific Gravity - Urine 1.025 (1.005-1.025); Urine Blood Negative (Negative); Urine Ketones Negative (Negative); Urine Protein Negative (Neg-Trace)
[2024-11-18 10:28] LABS: Alanine Aminotransferase 54 U/L (0-40); Albumin Level 4.2 g/dL (3.5-5.0); Alkaline Phosphatase 122 U/L (39-117); Anion Gap 11 (12-20); Aspartate Amino Transferase 35 U/L (5-37); Bilirubin Total 0.8 mg/dL (0.0-1.0); Blood Urea Nitrogen 12 mg/dL (9-16); Calcium 9.1 mg/dL (8.4-10.2); Carbon Dioxide 24 mmol/L (22-29); Chloride 106 mmol/L (96-108); Cholesterol 197 mg/dL (<200); Estimated Glomerular Filt Rate > 60; Glucose Fasting 93 mg/dL (60-99); HDL Cholesterol 33 mg/dL (>40); LDL Cholesterol Calculated 115 mg/dL (<100); Potassium 3.8 mmol/L (3.3-5.1); Sodium 137 mmol/L (135-145); Total Protein 7.6 g/dL (6.5-8.0); Triglycerides 248 mg/dL (<150)
[2024-11-18 10:34] LABS: Prostate Specific Antigen Scr 0.85 ng/mL (<0.05-4.0)
[2024-11-18 10:48] LABS: TSH reflex Free T4 2.11 uIU/mL (0.32-4.0)
== END 2024-11-18 08:42 | disposition home or self-care (01) ==
LOC: HO.HMGCLDS 08:41
PROVIDERS: PCP Nurse Practitioner Family; Visit Provider Nurse Practitioner Family
DX: Z00.00 Encounter for general adult medical examination without abnormal findings (principal); Z12.5 Encounter for screening for malignant neoplasm of prostate; Z13.6 Encounter for screening for cardiovascular disorders
CPT/HCPCS: 36415; 80053; 80061; 81003; 84153; 84443; 85025

== ENCOUNTER 2024-11-29 06:12 | Outpatient (REF) | payer BC, OTHER, SELFPAY ==
[2024-11-29 10:05] LABS: MANUAL DIFF FLAG NO
[2024-11-29 10:09] LABS: Basophils Percent Auto 0.5 % (0-2); Eosinophils Absolute Auto 0.2 X10*3/uL (0.0-0.4); Eosinophils Percent Auto 3.4 % (0-4); Hematocrit 47.5 % (42.0-52.0); Hemoglobin 16.6 g/dl (14.0-18.0); Imm Gran Abs Auto 0.02 X10*3/uL (0.00-0.03); Imm Gran Pct Auto 0.4 % (0.0-0.4); Lymphocytes Percent Auto 17.4 % (20-40); Mean Corpuscular HGB Conc 34.9 g/dl (31.0-36.0); Mean Corpuscular Hemoglobin 31.7 pg (27.0-33.0); Mean Corpuscular Volume 90.6 fL (80.0-98.0); Mean Platelet Volume 9.5 fL (9.4-12.4); Monocytes Absolute Auto 0.5 X10*3/uL (0.1-1.2); Monocytes Percent Auto 9.2 % (2-11); Neutrophils Absolute Auto 3.9 x10*3/uL (2.0-8.3); Neutrophils Percent Auto 69.1 % (45-73); Platelet Count 299 X10*3/uL (160-400); Red Blood Count 5.24 X10*6/uL (4.60-5.80); Red Cell Distribution Width 12.5 % (11.0-16.0); White Blood Count 5.6 X10*3/uL (4.8-10.8)
[2024-11-29 10:28] LABS: Anion Gap 13 (12-20)
[2024-11-29 10:31] LABS: Alanine Aminotransferase 59 U/L (0-40); Albumin Level 4.1 g/dL (3.5-5.0); Alkaline Phosphatase 125 U/L (39-117); Aspartate Amino Transferase 34 U/L (5-37); Bilirubin Total 0.4 mg/dL (0.0-1.0); Blood Urea Nitrogen 13 mg/dL (9-16); Carbon Dioxide 25 mmol/L (22-29); Chloride 107 mmol/L (96-108); Estimated Glomerular Filt Rate > 60; Glucose Random 98 mg/dL (60-115); Potassium 3.9 mmol/L (3.3-5.1); Sodium 141 mmol/L (135-145); Total Protein 7.4 g/dL (6.5-8.0)
[2024-11-29 10:43] LABS: HBS Num1 3.17 mIU/mL (0-7.99); HBc Num1 0.29 S/CO (0.00-0.79); HBsAGNum1 0.32 S/CO (0.00-0.99); Hepatitis A Antibody IgM 0.17 Index (0-0.79); Hepatitis B Core Antibody Nonreactive (Nonreactive); Hepatitis B Surface Antigen Negative (Negative); ~HepC Num1 0.14 S/CO (0.00-0.79); ~Hepatitis A Antibody IgM Nonreactive (Nonreactive); ~Hepatitis B Surface Antibody NONREACTIVE (Nonreactive); ~Hepatitis C Antibody Nonreactive (Nonreactive)
[2024-11-29 11:55] LABS: Gamma Glutamyl Transpeptidase 28 U/L (11-51)
[2024-12-03 12:33] LABS: Alk.Phos Iso. Macrohepatic 0 % (<=0); Alk.Phos Isoenzymes Bone 35 % (28-66); Alk.Phos Isoenzymes Intest 27 % (1-24); Alk.Phos Isoenzymes Liver 38 % (25-69); Alk.Phos Isoenzymes Placental 0 % (<=0); Alk.Phos Isoenzymes Total 115 U/L (35-144)
== END 2024-11-29 06:13 | disposition home or self-care (01) ==
LOC: HO.HMGCLDS 06:12
PROVIDERS: PCP Nurse Practitioner Family; Visit Provider Nurse Practitioner Family
DX: R74.8 Abnormal levels of other serum enzymes (principal); Z11.59 Encounter for screening for other viral diseases
CPT/HCPCS: 36415; 80053; 82977; 84080; 85025; 86704; 86706; 86709; 86803; 87340